=== PATIENT | female | born 1960 | race Caucasian/White ===

== ENCOUNTER 2021-05-03 06:24 | Emergency (ER) | payer BC ==
[~2021-05-03] VITALS: Ht 170.2 cm; Wt 81.7 kg
[~2021-05-03 06:24] MED LIST: CIPROFLOXACIN500 M1 PO; FISH OIL 1,0001 EAC5; FLONASE 0.05%50 MCG; METOPROLOL; VICODIN 5-3001 EACH PO; ZOFRAN ODT4 MG PO
[2021-05-03 07:13] LABS: URINE BILIRUBIN NEGATIVE (Negative); URINE BLOOD TRACE (Negative); URINE CLARITY CLEAR; URINE COLOR YELLOW; URINE GLUCOSE-RANDOM NEGATIVE (Negative); URINE KETONES NEGATIVE (Negative); URINE LEUKOCYTES-REFLEX NEGATIVE (Negative); URINE NITRITE-REFLEX NEGATIVE (Negative); URINE PROTEIN NEGATIVE (Negative); URINE UROBILINOGEN 0.2 E.U./dl (0.2-1.0)
[2021-05-03 07:18] LABS: ABSOLUTE BASOPHILS 0.1 thou/uL (0.0-0.2); ABSOLUTE LYMPHOCYTES 1.5 thou/uL (0.8-5.3); ABSOLUTE MONOCYTES 0.6 thou/uL (0.0-1.2); ABSOLUTE NEUTROPHILS 9.6 thou/uL (1.6-8.1); BASOPHILS 0.6 %; EOSINOPHILS 0.1 %; HEMATOCRIT 38.1 % (37.0-47.0); HEMOGLOBIN 12.6 gm/dL (12.0-15.0); LYMPHOCYTES 12.5 %; MCH 27.5 pg (26.0-34.0); MCV 83.5 fL (80.0-100.0); MONOCYTES 4.9 %; MPV 8.4 fl. (7.2-11.1); NUCLEATED RBCS 0 /100WBC; PLATELET COUNT* 298 thou/uL (150-400); POLYS 81.9 %; RBC 4.56 mil/uL (4.20-5.00); RDW-CV 13.7 % (10.5-14.5); WBC 11.7 thou/uL (4.0-11.0)
[2021-05-03 07:33] LABS: CREATININE 1.1 mg/dL (0.6-1.3); POTASSIUM 3.7 mmol/L (3.5-5.1)
[2021-05-03 07:37] LABS: ALBUMIN 4.1 g/dL (3.4-5.0); TOTAL BILIRUBIN 0.4 mg/dL (<0.1-1.0); TOTAL PROTEIN 7.6 g/dL (6.4-8.2)
[2021-05-03] MEDS ORDERED: HYDROCODON-ACE1 EAC7 PO (08:55)
[2021-05-03] MEDS ORDERED: ZOFRAN ODT4 MG DISSOLVE (08:55)
[2021-05-03] MEDS ORDERED: FLOMAX0.4 MG PO (08:55)
[2021-05-03 09:00] VITALS: BP 125/66
--- NOTE | 2021-05-03 15:02 | EKG ---
[place] [address] ELECTROCARDIOGRAM REPORT Name: ERICA ISSA Room: [facility]#: [id number] Admission: 05/03/21 Attend Phys: Discharge: 05/03/21 Date of : 60 Date of Service: 05/03/21717 Report #: [id number] THIS REPORT FOR: //name// [facility] ED Test Date: 2021-05-03 Test Time: 07:18:35 Pat Name: ERICA ISSA Department: Room: Gender: [place] 1960 Requested By: Eric Aden Order Number: [id number] MD: Jonathan Farias Measurements Intervals [place] Rate: 67 P: 43 WV: 154 QRS: 43 QRSD: 80 T: 47 QT: 419 QTc: 443 Interpretive Statements Sinus rhythm No previous ECG available for comparison Electronically Signed On 05-03-2021 15:02:28 CDT by Jonathan Farias [email or web address] <ELECTRONICALLY SIGNED> By: Jonathan Farias MD, [facility] 05/03/21 1502 7 Jonathan Farias MD, FACC /EPI
== END 2021-05-03 09:00 | disposition home or self-care (01) ==
LOC: M.ERS 06:24
PROVIDERS: Emergency Medicine Emergency Medical Services
DX: N20.0 Calculus of kidney (principal)